=== PATIENT | male | born 1985 | race Caucasian/White ===

== ENCOUNTER 2017-08-16 19:03 | Emergency (ER) | payer OTHER ==
[~2017-08-16] VITALS: Ht 167.6 cm; Wt 56.7 kg
[~2017-08-16 19:03] MED LIST: BACTRIM DS TAB1 EACH PO; CLEOCIN HCL300 MG PO; HYDROCODON-ACE1 EA11 PO; IBUPROFEN 800800 M1 PO; IBUPROFEN 800800 MG PO; NOHOMEMEDICATIONS; NORCO 5-325 TA1 EACH PO
[2017-08-16] MEDS ORDERED: FLEXERIL PO (20:25)
[2017-08-16] MEDS ORDERED: PROMETH-CODEIN 65 ML PO (20:25)
[2017-08-16 20:39] LABS: INFLUENZA A ANTIGEN None Detected (None Detect); INFLUENZA B ANTIGEN None Detected (None Detect)
[2017-08-16 20:59] VITALS: BP 110/77
== END 2017-08-16 20:59 | disposition home or self-care (01) ==
LOC: M.ERS 19:03
PROVIDERS: Nurse Practitioner Family
DX: J06.9 Acute upper respiratory infection, unspecified (principal); F17.210 Nicotine dependence, cigarettes, uncomplicated; Z86.14 Personal history of Methicillin resistant Staphylococcus aureus infection; Z88.6 Allergy status to analgesic agent; Z88.2 Allergy status to sulfonamides

== ENCOUNTER 2019-01-30 19:19 | Emergency (ER) | payer OTHER ==
[~2019-01-30] VITALS: Ht 167.6 cm; Wt 54.4 kg
[~2019-01-30 19:19] MED LIST changes: +FLEXERIL PO; +PROMETH-CODEIN 65 ML PO
[2019-01-30 19:26] VITALS: BP 119/76
[2019-01-30] MEDS ORDERED: KEFLEX500 M1 PO (19:26)
== END 2019-01-30 19:28 | disposition home or self-care (01) ==
LOC: M.ERS 19:19
DX: R59.1 Generalized enlarged lymph nodes (principal); F17.210 Nicotine dependence, cigarettes, uncomplicated; Z88.2 Allergy status to sulfonamides; Z88.6 Allergy status to analgesic agent; Z86.14 Personal history of Methicillin resistant Staphylococcus aureus infection; Z88.1 Allergy status to other antibiotic agents

== ENCOUNTER 2020-08-11 16:31 | Emergency (ER) | payer OTHER ==
[~2020-08-11] VITALS: Ht 167.6 cm; Wt 59.0 kg
[~2020-08-11 16:31] MED LIST changes: +KEFLEX500 M1 PO
[2020-08-11] MEDS ORDERED: CIPROFLOXIN HC2.5 M1 OPHTHALMIC (17:04)
[2020-08-11] MEDS ORDERED: NAPROSYN500 M1 PO (17:04)
[2020-08-11 17:12] VITALS: BP 145/70
== END 2020-08-11 17:13 | disposition home or self-care (01) ==
LOC: M.ERS 16:31
DX: S05.01XA Injury of conjunctiva and corneal abrasion without foreign body, right eye, initial encounter (principal); F17.210 Nicotine dependence, cigarettes, uncomplicated; Z88.2 Allergy status to sulfonamides; Z88.8 Allergy status to other drugs, medicaments and biological substances; X58.XXXA Exposure to other specified factors, initial encounter; Y93.72 Activity, wrestling; Y92.89 Other specified places as the place of occurrence of the external cause; Y99.8 Other external cause status

== ENCOUNTER → 2021-08-12 | Outpatient (CLI) | payer OTHER ==
[~2021-08-12] MED LIST changes: +CIPROFLOXIN HC2.5 M1 OPHTHALMIC; +NAPROSYN500 M1 PO
== END ==
LOC: M.RAD 17:02
PROVIDERS: ATTEND Emergency Medicine
DX: S32.058A Other fracture of fifth lumbar vertebra, initial encounter for closed fracture (principal); M48.07 Spinal stenosis, lumbosacral region; M19.031 Primary osteoarthritis, right wrist; W01.198A Fall on same level from slipping, tripping and stumbling with subsequent striking against other object, initial encounter; Y93.89 Activity, other specified; Y92.89 Other specified places as the place of occurrence of the external cause; Y99.8 Other external cause status